=== PATIENT | male | born 1950 | race Caucasian/White ===

== ENCOUNTER 2016-07-02 07:15 | Inpatient (IN) | payer OTHER ==
[2016-07-30] MEDS ORDERED: ceFAZolin 2 GM/DEXTROSE 100 ML IV ONE (06:00)
[2016-07-30] MEDS ORDERED: fentaNYL 100 MCG/2 ML INJ IT ONE (06:00)
[2016-07-30] MEDS ORDERED: morphINE PF 5 MG/10 ML INJ IT ONE (06:00)
[2016-07-30] MEDS ORDERED: LIDOCAINE 1% 5 ML SDV ID PRN (06:08)
[2016-07-30] MEDS ORDERED: LR 1,000 ML IV ONE (06:08)
[2016-07-30] MEDS ORDERED: LIDOCAINE 1% 2 ML INJ ONE (06:15)
[2016-07-30] MEDS ORDERED: THROMBIN (RECOMBINANT) 5,000 UNIT VIAL TP ONE (06:38)
[2016-07-30] MEDS ORDERED: BUPIVACAINE 0.25% 30 ML SDV ONE (06:38)
[2016-07-30] MEDS ORDERED: CITRATE DEXTROSE SOLN 500 ML BAG ONE ×2 (06:38→06:43)
[2016-07-30] MEDS ORDERED: BACITRACIN 50,000 UNITS/10 ML SYR IRR ONE (06:39)
[2016-07-30] MEDS ORDERED: BUPIVACAINE/EPI 0.25% 30 ML SDV ONE (06:39)
[2016-07-30] MEDS ORDERED: MIDAZOLAM 2 MG/2 ML VIAL ONE (06:52)
[2016-07-30 07:00] LABS: ANION GAP 10 mEq/L (8-16); CALCIUM 9.2 mg/dL (8.5-10.4); CARBON DIOXIDE 24 mEq/l (22-31); CHLORIDE 108 mEq/L (97-110); CREATININE 0.9 mg/dL (0.7-1.3); GLOMERULAR FILTRATION RATE > 60; GLUCOSE 97 mg/dL (70-100); POTASSIUM 4.2 mEq/L (3.5-5.2); SODIUM 142 mEq/L (134-144)
[2016-07-30] MEDS ORDERED: PROPOFOL/EMULSION 500 MG/50 ML BOTTLE IV ONE ×3 (07:04→09:45)
[2016-07-30] MEDS ORDERED: ROCURONIUM 50 MG/5 ML VIAL ONE (07:05)
[2016-07-30] MEDS ORDERED: METOCLOPRAMIDE 10 MG/2 ML VIAL ONE (07:05)
[2016-07-30] MEDS ORDERED: LIDOCAINE 2% 100 MG/5 ML SYR ONE (07:05)
[2016-07-30] MEDS ORDERED: DEXAMETHASONE 4 MG/ML VIAL ONE ×3 (07:05)
[2016-07-30] MEDS ORDERED: PHENYLEPHRINE 10 MG/ML SDV ONE (08:12)
[2016-07-30] MEDS ORDERED: morphINE PF 10 MG/10 ML INJ ONE (09:04)
[2016-07-30] MEDS ORDERED: fentaNYL 100 MCG/2 ML INJ ONE (09:04)
[2016-07-30] MEDS ORDERED: LACTULOSE 20 GM/30 ML UDCUP PO PRN (11:47)
[2016-07-30] MEDS ORDERED: oxyCODONE IR 5 MG TAB PO PRN (11:47)
[2016-07-30] MEDS ORDERED: MAGNESIUM HYDROXIDE 30 ML UDCUP PO PRN (11:47)
[2016-07-30] MEDS ORDERED: HYDROmorphONE/DILAUDID 1 MG/ML SYR IVP PRN (11:47)
[2016-07-30] MEDS ORDERED: ACETAMINOPHEN 325 MG TAB PO PRN (11:47)
[2016-07-30] MEDS ORDERED: HYDROmorphONE/DILAUDID 6 MG/30 ML PCA IV PRN (11:47)
[2016-07-30] MEDS ORDERED: DIAZEPAM 5 MG TAB PO PRN (11:47)
[2016-07-30] MEDS ORDERED: NALOXONE HCL 0.4 MG/ML INJ IVP PRN (11:47)
[2016-07-30] MEDS ORDERED: BISACODYL 10 MG SUPP PR PRN (11:47)
[2016-07-30] MEDS ORDERED: HYDROCODONE/APAP 10/325 TAB PO PRN (11:47)
[2016-07-30] MEDS ORDERED: ONDANSETRON DISINTEGRATING 4 MG TAB PO PRN (11:47)
[2016-07-30] MEDS ORDERED: ONDANSETRON 4 MG/2 ML VIAL IVP PRN (11:47)
[2016-07-30] MEDS ORDERED: DIAZEPAM 10 MG/2 ML SYR IVP PRN (11:47)
[2016-07-30] MEDS ORDERED: NS W/ 20 KCl/L 1,000 ML IV SCH (12:00)
--- NOTE | 2016-07-30 13:31 | POSTOPPROG ---
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
--- NOTE | 2016-07-30 13:34 | SOAPPROG ---
SOAP Progress Note Assessment/Plan: Assessment: 65 yo M sp L5/S1 hardware removal L4/5 TLIF, L4-S1 fusion Plan: neuro: stable PT/OT LSO brace when out of bed lovenox starts POD #1 please call with neuro changes patient seen by Dr Malcolm in pacu 07/30/16 13:31 Subjective: no back pain, no leg pain Objective: Vital Signs Temp Pulse Resp BP Pulse Ox 117/79 95 07/30/16 13:02 07/30/16 13:02 Laboratory Results 07/30/16 06:45 somnolent PERRL, no facial droop 5/5 + light touch ICD10 Worksheet Patient Problems: Problems Problem Status Onset Fusion of lumbar spine Acute - ICD10 Problem Qualifiers (1) Fusion of lumbar spine
--- NOTE | 2016-07-30 17:02 | GOP ---
[f rep st] OPERATIVE REPORT DATE OF OPERATION: 07/30/2016 SURGEON: Camilo Stark MD HARPOONER: KEVIN Gonzalez. ANESTHESIA: General endotracheal. PREOPERATIVE DIAGNOSIS: 1. Intractable low back pain and right lower extremity radiculopathy. 2. Severe adjacent-level degeneration at L4-5 and neuroforaminal encroachment status post prior L5- S1 instrumented decompression and fusion. Failed conservative care. POSTOPERATIVE DIAGNOSIS: 1. Intractable low back pain and right lower extremity radiculopathy. 2. Severe adjacent-level degeneration at L4-5 and neuroforaminal encroachment status post prior L5- S1 instrumented decompression and fusion. Failed conservative care. PROCEDURE PERFORMED: Removal of posterior nonsegmental (pedicle screw) fixation at L5-S1 with repla cement of posterior segmental (pedicle screw) fixation from L4 to S1. Right-sided L4-5 far lateral transpedicular decompression with L4-5 posterior/transforaminal lumbar interbody fusion with 2 struc tural PEEK interbody spacers, local autograft and bone morphogenic protein. L4 through S1 posterola teral fusion with local autograft and bone morphogenic protein. Use of intraoperative microscopy, f luoroscopy, and computer volumetric stereotactic navigation with intraoperative neurophysiologic chadwick ting. Injection of intrathecal narcotic analgesics for postoperative pain control. FINDINGS: ESTIMATED BLOOD LOSS: 600 cc. INDICATIONS: The patient is a 65-year-old man with a history of a prior L5-S1 decompression and sta bilization with instrumentation. He has recently had progressively worsening back pain and right lo wer extremity radicular symptoms secondary to severe adjacent level degeneration and neuroforaminal encroachment. He has failed extensive conservative care and presents now for surgical decompression and stabilization and removal and replacement of hardware. DESCRIPTION OF PROCEDURE: After informed consent was obtained, patient was taken to the operating r oom and placed in a prone position on the Trey table. The lumbosacral area was prepped and drape d in a sterile fashion. After fluoroscopic localization of correct levels, the subcutaneous and int ramuscular tissues were infiltrated with local anesthesia. A midline linear incision was then creat ed from approximately L4 through S1. This was carried down to the fascial layer, which was incised using monopolar electrocautery and carried in the subfascial plane along the spinous processes and l manuel bilaterally at the levels above and below the prior surgery. The normal anatomy was carefully dissected out, and following this the dissection was carried out into the abnormal previously opera renée on area, where the prior instrumentation was identified and noted to have a massive amount of antwan ne growth around it, which was carefully rongeured and drilled away. This was a very archaic pedicl e screw system and it took an extensive amount of time to remove the locking caps, followed by the i nteresting and very different rods and the secondary locking caps and screws. One of the screws in S1 was broken and the tip was left in the sacrum because I felt that it would not be in the patient' s best interest to try get it out and would cause more harm than good. Following this, the microsco pe was brought in and a right-sided L4-5 far lateral transpedicular decompression was performed with extensive unroofing of the facet joint and neural foramina at L4 and L5 in the lateral recess and c entral canal as well. There was an extensive amount of bony growth from the prior fusion that encro ached upon L4 and L5, but no fusion was present there and the joints were definitely mobile. Follow ing adequate decompression, along with a redo right-sided posterior hemilaminectomy, medial facetect shivani, and foraminotomy at the L5-S1 level on the right, the wound was copiously irrigated with antibi otic irrigation. Meticulous hemostasis was achieved. Following this, pedicle screws were placed at L4, L5, and S1 on the left and L4 and L5 on the right. Each individual screw was tested neurophysi ologically with monopolar electrostimulation and interpretation of the potentials by the surgeon. B iplanar fluoroscopy was also utilized to verify good positioning of the screws. Following this, a s light amount of distraction was created across the L4-5 interspace, during which time a complete dis kectomy was performed with preparation of the endplates and placement of 2 structural PEEK interbody spacers, local autograft, and bone morphogenic protein for an L4-5 posterior/transforaminal lumbar interbody fusion. A screw was also placed at the S1 level on the left given that the screws at L5 w ere not super solid. Following this, rods were placed across the L4-5 interspace with a slight amou nt of distraction. A complete diskectomy was then performed at the L4-5 level with preparation of e ndplates and placement of two 10 mm structural PEEK interbody spacers, local autograft, and bone mor phogenic protein for an L4-5 posterior/transforaminal lumbar interbody fusion. The permanent rods w ere then placed with the locking caps, with a slight amount of compression across the L4-5 interspac e in order to facilitate bony union and to minimize the potential for posterior graft migration. Th e S1 screw on the left was also locked in. The remaining lamina and facet joints, especially on the left, were then extensively decorticated and the residual local autograft along with bone morphogen ic protein was placed out laterally for a posterolateral fusion from L4 through S1. Note that a red o posterior hemilaminectomy and medial facetectomy and foraminotomy was also performed on the right at the L5-S1 level due to the massive amount of bony overgrowth encroaching upon the lateral recess and neural foramen. This was performed in conjunction with the L4-[address] ment of the bone graft out laterally, 200 mcg of Duramorph along with 50 mcg of fentanyl were inject ed intrathecally for postoperative pain control. The subcutaneous and intramuscular tissues were re -infiltrated with local anesthesia. A drain was placed and the wound was closed in layered fashion using interrupted Vicryl sutures followed by Steri-Strips on the skin. COMPLICATIONS: None. DISPOSITION: The patient was extubated and transported to the recovery room in stable condition. /[id number]/MODL
[2016-07-30] MEDS: POLYETHYLENE GLYCOL 3350 17 GM PKT PO SCH ×2 (17:14→20:17)
[2016-07-30] MEDS: METHOCARBAMOL 750 MG TAB PO PRN (17:22)
[2016-07-30] MEDS: SENNOSIDES/DOCUSATE SODIUM TAB PO SCH (20:17)
[2016-07-30] MEDS: FAMOTIDINE 20 MG TAB PO SCH (20:17)
[2016-07-30] MEDS: morphINE SR 15 MG TAB PO SCH (20:17)
[2016-07-30] MEDS ORDERED: FAMOTIDINE 20 MG/NACL 50 ML IV SCH (21:00)
[2016-07-30] MEDS: diphenhydrAMINE 25 MG CAP PO PRN (23:05)
[2016-07-31] MEDS: METHOCARBAMOL 750 MG TAB PO PRN ×2 (03:39→11:07)
[2016-07-31] MEDS: diphenhydrAMINE 25 MG CAP PO PRN (03:57)
[2016-07-31 05:30] LABS: % IMMATURE GRANULYOCYTES 0.6 % (0.0-1.1); ABSOLUTE IMMATURE GRANULOCYTES 0.06 10^3/uL (0.00-0.10); ADD DIFF? NO; ADD MORPH? NO; ADD SCAN? NO; ATYPICAL LYMPHOCYTE FLAG 0 (0-99); FRAGMENT RBC FLAG 0 (0-99); HEMATOCRIT 34.1 % (40.0-51.0); HEMOGLOBIN 11.7 g/dL (13.7-17.5); LEFT SHIFT FLG 0 (0-99); LIPEMIA HEMOLYSIS FLAG 90 (0-99); MEAN CELL HEMOGLOBIN 34.8 pg (27.9-34.1); MEAN CELL HEMOGLOBIN CONCENTR. 34.3 g/dL (32.4-36.7); MEAN CELL VOLUME 101.5 fL (81.5-99.8); MEAN PLATELET VOLUME 11.3 fL (8.7-11.7); PLATELET CLUMPS FLAG 0 (0-99); PLATELET COUNT 143 10^3/uL (150-400); RED BLOOD CELL COUNT 3.36 10^6/uL (4.40-6.38)
[2016-07-31 05:42] LABS: ANION GAP 7 mEq/L (8-16); CALCIUM 8.2 mg/dL (8.5-10.4); CARBON DIOXIDE 26 mEq/l (22-31); CHLORIDE 107 mEq/L (97-110); CREATININE 0.8 mg/dL (0.7-1.3); GLOMERULAR FILTRATION RATE > 60; GLUCOSE 95 mg/dL (70-100); POTASSIUM 4.3 mEq/L (3.5-5.2); SODIUM 140 mEq/L (134-144)
--- NOTE | 2016-07-31 08:01 | NEUSURGPN ---
Date of Surgery: 07/30/16 Post Op Day: 1 Assessment/Plan: 65 yo male s/p L5/S1 hardware removal and L4-S1 fusion with L4/5 TLIF, POD#1 - neuro stable - pain controlled on current regimen - continue ARTEMIO drain - wear brace when out of bed - postop L-spine x-rays pending - PT/OT - continue Ancef until drain removed or patient is discharged - possibly home later today if continues to progress well with ARTEMIO drain Subjective: Having new right anterior thigh numbness (likely from positioning). No other new LE symptoms. Back pain controlled Objective: Awake. Alert. PERRL. EOMI Following commands Muscle strength full at 5/5 Sensation intact Catheter Insertion Date: 07/30/16 - Physician Discussed Patient with : Mi Patient Seen by : Mi Neurosurgery Physical Exam - Vitals, I&O, Labs I and O 07/30/16 07/31/16 08/01/16 05:59 05:59 05:59 Intake Total 4750 Output Total 5550 Balance -800 Weight 99.79 kg Intake: Oral (ml) 1550 IV Intake (ml) 3200 Output: Urine (ml) 4145 Catheter 4145 Estimated Blood Loss (ml) 700 Wound Drainage (ml) 705 #1 Back Trey Good 705 Other: Intake Quantity Yes Sufficient Vital Signs Temp Pulse Resp BP Pulse Ox 36.8 C 70 15 130/74 H 96 07/31/16 04:18 07/31/16 04:18 07/31/16 04:18 07/31/16 04:18 07/31/16 04:18 Laboratory Results 07/31/16 04:39 07/31/16 04:39 ICD10 Worksheet Patient Problems: Problems Problem Status Onset Fusion of lumbar spine Acute
[2016-07-31] MEDS ORDERED: ENOXAPARIN 40 MG/0.4 ML SYR SC SCH (09:00)
[2016-07-31] MEDS ORDERED: TAMSULOSIN HCL 0.4 MG CAP PO SCH (09:00)
[2016-07-31] MEDS: morphINE SR 15 MG TAB PO SCH (09:33)
[2016-07-31] MEDS: POLYETHYLENE GLYCOL 3350 17 GM PKT PO SCH (09:33)
[2016-07-31] MEDS: FAMOTIDINE 20 MG TAB PO SCH (09:33)
[2016-07-31] MEDS: SENNOSIDES/DOCUSATE SODIUM TAB PO SCH (09:34)
[2016-07-31 12:45] VITALS: BP 135/74; PULSE 76; RESP 16; TEMP 98.2; O2SAT 95
== END 2016-07-31 14:49 | disposition home or self-care (01) | DRG 460 ==
LOC: F3E 07-30 05:43 → F2N 07-30 11:16 → F3N 07-30 11:17
PROVIDERS: ADMIT Neurological Surgery; ATTEND Neurological Surgery
PROC: 0SG0071 Fusion of Lumbar Vertebral Joint with Autologous Tissue Substitute, Posterior Approach, Posterior Column, Open Approach (ICD-10-PCS; principal; 2016-07-30 07:15)
PROC: 00NY0ZZ Release Lumbar Spinal Cord, Open Approach (ICD-10-PCS; principal; 2016-07-30 07:15)
PROC: 0QP004Z Removal of Internal Fixation Device from Lumbar Vertebra, Open Approach (ICD-10-PCS; principal; 2016-07-30 07:15)
PROC: 0ST20ZZ Resection of Lumbar Vertebral Disc, Open Approach (ICD-10-PCS; principal; 2016-07-30 07:15)
PROC: 01NB0ZZ Release Lumbar Nerve, Open Approach (ICD-10-PCS; principal; 2016-07-30 07:15)
PROC: 0SG3071 Fusion of Lumbosacral Joint with Autologous Tissue Substitute, Posterior Approach, Posterior Column, Open Approach (ICD-10-PCS; principal; 2016-07-30 07:15)
PROC: 3E0U0GB Introduction of Recombinant Bone Morphogenetic Protein into Joints, Open Approach (ICD-10-PCS; principal; 2016-07-30 07:15)
PROC: 0QP104Z Removal of Internal Fixation Device from Sacrum, Open Approach (ICD-10-PCS; principal; 2016-07-30 07:15)
PROC: 8E09XBF Computer Assisted Procedure of Head and Neck Region, With Fluoroscopy (ICD-10-PCS; principal; 2016-07-30 07:15)
PROC: 4A1004G Monitoring of Central Nervous Electrical Activity, Intraoperative, Open Approach (ICD-10-PCS; principal; 2016-07-30 07:15)
PROC: 0SG00AJ Fusion of Lumbar Vertebral Joint with Interbody Fusion Device, Posterior Approach, Anterior Column, Open Approach (ICD-10-PCS; principal; 2016-07-30 07:15)
DX: T84.418A Breakdown (mechanical) of other internal orthopedic devices, implants and grafts, initial encounter (principal); M51.17 Intervertebral disc disorders with radiculopathy, lumbosacral region; E66.9 Obesity, unspecified
CPT/HCPCS: 97161-GP; 97165-GO; C1713; J0690; J1100; J1650; J2001; J2250; J2274; J2370; J2704; J2765; J3010; J7060

== ENCOUNTER → 2016-07-29 | Outpatient (CLI) | payer OTHER | LOC: FIMAGING 12:41 | PROVIDERS: ATTEND Physician Assistant Surgical | DX: Z01.818 Encounter for other preprocedural examination (principal); M51.36 Other intervertebral disc degeneration, lumbar region; M43.16 Spondylolisthesis, lumbar region; Z98.1 Arthrodesis status ==

== ENCOUNTER → 2016-10-28 | Outpatient (CLI) | payer OTHER | LOC: FIMAGING 10:37 | PROVIDERS: ATTEND Neurological Surgery | DX: M51.36 Other intervertebral disc degeneration, lumbar region (principal); Z98.1 Arthrodesis status ==

== ENCOUNTER → 2017-02-02 | Outpatient (CLI) | payer OTHER | LOC: FIMAGING 11:27 | PROVIDERS: ATTEND Physician Assistant Surgical | DX: Z09 Encounter for follow-up examination after completed treatment for conditions other than malignant neoplasm (principal); Z98.1 Arthrodesis status ==